=== PATIENT | female | born 1960 | race Caucasian/White ===

== ENCOUNTER 2023-10-31 12:47 | Outpatient (CLI) | payer OTHER, SELFPAY ==
[2023-10-31 17:23] LABS: C.Difficile Negative (Negative); CDIFFEPI 027 PRESUMPTIVE NEGATIVE (Negative)
[2023-11-05 13:22] LABS: Ova and Parasite, Fecal Negative (Negative)
== END 2023-10-31 12:48 | disposition home or self-care (01) ==
PROVIDERS: PCP Physician Assistant Medical; Visit Provider Physician Assistant
DX: R19.7 Diarrhea, unspecified (principal)
CPT/HCPCS: 87045; 87046; 87177; 87209; 87329; 87427; 87493

== ENCOUNTER 2024-11-08 08:56 | Outpatient (CLI) | payer BC, SELFPAY ==
[2024-11-10 09:15] LABS: HPV Source Cervical/Vag; HPV, High Risk by TMA Not Detected
== END 2024-11-08 08:57 | disposition home or self-care (01) ==
PROVIDERS: PCP Physician Assistant Medical; Visit Provider Physician Assistant Medical
DX: I10 Essential (primary) hypertension (principal); R03.0 Elevated blood-pressure reading, without diagnosis of hypertension; Z13.6 Encounter for screening for cardiovascular disorders; Z13.29 Encounter for screening for other suspected endocrine disorder; Z11.3 Encounter for screening for infections with a predominantly sexual mode of transmission
CPT/HCPCS: 80053; 80061; 84443; 87624; 87625; 88141; 88142

== ENCOUNTER 2024-11-14 13:24 | Outpatient (CLI) | payer BC, SELFPAY ==
[2024-11-14] MEDS: PERFLUTREN LIPID MICROSPHERES 2 ML VIAL IVP (14:46)
[2024-11-14 15:10] VITALS: BP 157/72; PULSE 92
--- NOTE | 2024-11-14 16:05 | W.PM.STED ---
Stress Test Note Providers Primary care provider: Debbie Dorman Stress test physician: Malick Pal Stress Test Note Stress test ordered: Stress Echo Indication for test: Shortness of breath Stress test medicine: Definity Results discussion: Patient is a very nice 64-year-old lady who presents here for pulses see stress echo, history of shortness of breath, cardiac stress test medical history form reviewed. Informed consent risks benefits and side effects discussed, would like to proceed. Pretest EKG shows normal sinus rhythm, no acute ST wave changes, ventricular rate 71 blood pressure 184/77. On the Yoshi protocol for duration of 5 minutes achieved a metabolic from a 7 Mets, maximum heart rate is 147 which is 110% of the maximum, test is terminated because of fulfillment of protocol, and overall fatigue. During this test she had no subjective symptoms of chest pain shortness of breath or any other anginal equivalent, review of the tracing showed no evidence of the EKG evidence of abnormality. Conditioning was felt to be good Impression: Negative electrographic portion of stress echo Follow up suggested: Await echo images these will be read by Cardiology, clinical correlation with these will be needed, follow up as above, there were no complications.
== END 2024-11-14 13:25 | disposition home or self-care (01) ==
PROVIDERS: PCP Physician Assistant Medical; Visit Provider Physician Assistant Medical
DX: R06.02 Shortness of breath (principal)
CPT/HCPCS: 93016; 93325; 93351; Q9957

== ENCOUNTER 2024-11-20 09:33 | Outpatient (CLI) | payer BC, SELFPAY ==
--- NOTE | 2024-11-20 10:57 | P.ANES_ITS ---
Anesthesia Charges Start Date/Time Anesthesia Start Date: 11/20/24 Anesthesia Start Time: 10:15 Stop Date/Time Anesthesia Stop Date: 11/20/24 Anesthesia Stop Time: 10:55 Coding CPT Codes CPT Codes: JACQUELINE LWR INTST SCR COLSC - 12318 ([id number]) P2 - PATIENT W/MILD SYST DISEASE, QK - SPECIALTY DEVELOPMENT CONSULTANT 2-4 CNCRNT ANES PROC, QX - MUSICAL INSTRUMENT MECHANIC SVC W/ MD MED DIRECTION
--- NOTE | 2024-11-20 10:57 | W.ANESCHARGE ---
Anesthesia Charges Start Date/Time Anesthesia Start Date: 11/20/24 Anesthesia Start Time: 10:15 Stop Date/Time Anesthesia Stop Date: 11/20/24 Anesthesia Stop Time: 10:55 Coding CPT Codes CPT Codes: JACQUELINE LWR INTST SCR COLSC - 60817 ([id number]) P2 - PATIENT W/MILD SYST DISEASE, QK - CERTIFIED NURSING ATTENDANT 2-4 CNCRNT ANES PROC, QX - DIRECTOR POST SVC W/ MD MED DIRECTION
--- NOTE | 2024-11-20 11:26 | P.ANES_ITS ---
Anesthesia Charges Start Date/Time Anesthesia Start Date: 11/20/24 Anesthesia Start Time: 10:15 Stop Date/Time Anesthesia Stop Date: 11/20/24 Anesthesia Stop Time: 10:55 Coding CPT Codes CPT Codes: JACQUELINE LWR INTST SCR COLSC - 42614 ([id number]) P2 - PATIENT W/MILD SYST DISEASE, QK - MOTOR HOTEL MANAGER 2-4 CNCRNT ANES PROC, QX - STOGY ROLLER SVC W/ MD MED DIRECTION
--- NOTE | 2024-11-20 11:26 | W.ANESCHARGE ---
Anesthesia Charges Start Date/Time Anesthesia Start Date: 11/20/24 Anesthesia Start Time: 10:15 Stop Date/Time Anesthesia Stop Date: 11/20/24 Anesthesia Stop Time: 10:55 Coding CPT Codes CPT Codes: JACQUELINE LWR INTST SCR COLSC - 75983 ([id number]) P2 - PATIENT W/MILD SYST DISEASE, QK - PARAMEDICAL AIDE 2-4 CNCRNT ANES PROC, QX - CORRECTION WARDEN SVC W/ MD MED DIRECTION
== END 2024-11-20 09:34 | disposition home or self-care (01) ==
LOC: OP CLINIC 09:33
PROVIDERS: PCP Physician Assistant Medical; Visit Provider Surgery
DX: Z12.11 Encounter for screening for malignant neoplasm of colon (principal); K57.30 Diverticulosis of large intestine without perforation or abscess without bleeding
CPT/HCPCS: 00812; 45378; J2704

== ENCOUNTER 2024-11-20 13:31 | Outpatient (CLI) | payer BC, SELFPAY ==
--- NOTE | 2024-11-20 15:00 | CRLHL7_ITS ---
For Patients: As a result of the Century Cures Act, medical imaging exams and procedure reports are released immediately into your electronic medical record. You may view this report before your referring provider. If you have questions, please contact your health care provider. INDICATION: Shortness of breath. TECHNIQUE: Noncontrast CT images of the chest. Comparison None. FINDINGS: Numerous small ground-glass nodules, predominantly within the upper lobes of both lungs. No pleural effusion or pneumothorax. Heart size is normal. No pericardial effusion. Coronary artery atherosclerotic calcifications. No mediastinal or hilar lymphadenopathy. Small hypoattenuating lesions in the liver are incompletely characterized, though may represent cysts. Mild thoracic spondylosis no aggressive osseous lesions. IMPRESSION: Numerous small ground-glass nodules in both lungs, predominantly in the upper lobes. Findings are most concerning for an infectious or inflammatory process. Follow-up chest CT is recommended within 3 months for reassessment. Please note that all CT scans at this facility use dose modulation, iterative reconstruction, and/or weight-based dosing when appropriate to reduce radiation dose to as low as reasonably achievable. Dictated by Adin Ayala MD @ 11/20/2024 7:00:54 PM (Electronically Signed)
== END 2024-11-20 13:32 | disposition home or self-care (01) ==
LOC: RAD 13:32
PROVIDERS: PCP Physician Assistant Medical; Visit Provider Physician Assistant Medical
DX: R06.02 Shortness of breath (principal); R91.8 Other nonspecific abnormal finding of lung field; F17.200 Nicotine dependence, unspecified, uncomplicated
CPT/HCPCS: 71250; 93306

== ENCOUNTER 2025-01-24 13:43 | Outpatient (CLI) | payer BC, SELFPAY ==
--- NOTE | 2025-01-24 14:00 | CRLHL7_ITS ---
For Patients: As a result of the Century Cures Act, medical imaging exams and procedure reports are released immediately into your electronic medical record. You may view this report before your referring provider. If you have questions, please contact your health care provider. BILATERAL DIGITAL SCREENING MAMMOGRAM WITH COMPUTER-AIDED DETECTION AND TOMOSYNTHESIS CLINICAL HISTORY: : Routine screening exam. COMPARISON: 09/13/19, 06/18/15, 11/17/12 TECHNIQUE: Digital mammogram in CC and MLO projections including computer-aided detection (CAD). Tomosynthesis was used in this interpretation. BREAST COMPOSITION: The breasts are heterogeneously dense, which may obscure small masses. FINDINGS: RIGHT Breast: No suspicious findings LEFT Breast: Focal asymmetric density within the upper outer quadrant 8 cm from the nipple. IMPRESSION: LEFT breast asymmetry/mass. RECOMMENDATIONS: Additional mammographic views of the LEFT breast including 3D spot compression CC/MLO. LEFT breast ultrasound may also be required. The [facility] will contact the patient. A lay language report of this examination will be provided to the patient. BI-RADS Category 0: Incomplete: Need Additional Imaging Evaluation Dictated by Marck Ricks MD @ 01/25/2025 12:23:39 PM Dictated by: Marck Ricks MD @ 01/25/2025 12:23:49 (Electronically Signed)
== END 2025-01-24 13:44 | disposition home or self-care (01) ==
LOC: MAMMO 13:44
PROVIDERS: PCP Physician Assistant Medical; Visit Provider Physician Assistant Medical
DX: Z12.31 Encounter for screening mammogram for malignant neoplasm of breast (principal); R92.333 Mammographic heterogeneous density, bilateral breasts; N63.20 Unspecified lump in the left breast, unspecified quadrant
CPT/HCPCS: 77063; 77067

== ENCOUNTER 2025-02-19 14:47 | Outpatient (CLI) | payer BC, SELFPAY ==
--- NOTE | 2025-02-19 15:00 | CRLHL7_ITS ---
For Patients: As a result of the Century Cures Act, medical imaging exams and procedure reports are released immediately into your electronic medical record. You may view this report before your referring provider. If you have questions, please contact your health care provider. Indication: F/U NODULE Technique: Noncontrast CT chest Please note that all CT scans at this facility use dose modulation, iterative reconstruction, and/or weight-based dosing when appropriate to reduce radiation dose to as low as reasonably achievable. Comparison: 11/20/2024 Findings: Small right thyroid lobe nodule is unchanged. Atherosclerotic changes. Similar sub cm mediastinal lymph nodes. No adrenal nodule. Intrahepatic cysts. No hiatal hernia. No pleural or pericardial effusion. Dense breast tissue is stable. No fracture. Multifocal ground-glass nodules throughout both lungs have increased in size and number since the prior study. These measure up to approximately 2 cm. Calcified nodule in the right middle lobe adjacent to the fissure incidentally noted. Impression: Innumerable ground-glass nodules throughout both lungs which have increased in size and number since the prior study. Pulmonology referral recommended. Please note that all CT scans at this facility use dose modulation, iterative reconstruction, and/or weight-based dosing when appropriate to reduce radiation dose to as low as reasonably achievable. Dictated by Marck Ricks MD @ 02/20/2025 10:44:08 AM (Electronically Signed)
== END 2025-02-19 14:48 | disposition home or self-care (01) ==
LOC: CT 14:48
PROVIDERS: PCP Physician Assistant Medical; Visit Provider Physician Assistant Medical
DX: R91.1 Solitary pulmonary nodule (principal); R91.8 Other nonspecific abnormal finding of lung field
CPT/HCPCS: 71250

== ENCOUNTER 2025-09-17 15:05 | Outpatient (CLI) | payer MEDICARE, SELFPAY | END 2025-09-17 15:06 | disposition home or self-care (01) | PROVIDERS: PCP Physician Assistant Medical; Visit Provider Physician Assistant Medical | DX: I10 Essential (primary) hypertension (principal) | CPT/HCPCS: 80053; 80061; 84443 ==